=== PATIENT | female | born 1970 | race Caucasian/White ===

== ENCOUNTER 2018-05-10 07:00 | Observation (INO) | payer OTHER ==
[~2018-05-10] VITALS: Ht 154.9 cm; Wt 73.0 kg
[2018-06-01 16:30] VITALS: Ht 154.9 cm; Wt 73.0 kg
[2018-06-02] VITALS (26 sets, daily range): BP systolic 108–137; BP diastolic 55–71; PULSE 80–113; RESP 10–20
[2018-06-02] MEDS ORDERED: LACTATED RINGER'S 1,000 ML IV* SCH (06:00)
[2018-06-02] MEDS ORDERED: CEFAZOLIN 2 GM/50 ML (PMX) 50 ML IVPB SCH (06:00)
--- NOTE | 2018-06-02 06:39 | HPN ---
Date/Time of Note Date/Time of Note DATE: 06/02/18 TIME: 06:38 Interval H&P Admission Note Pt. seen H&P reviewed: No system changes DANYEL HOOKER MD Jun 02, 2018 06:39
--- NOTE | 2018-06-02 06:43 | PREAC ---
Date/Time of Note Date/Time of Note DATE: 06/02/18 TIME: 06:41 Anesthesia Eval and Record Evaluation Time Pre-Procedure Interview DATE: 06/02/18 TIME: 06:41 Age 47 Sex female NPO: 8 hrs Preoperative diagnosis lumbar stenosis Planned procedure L3-L4 laminectomy and decompression, discectomy Past Medical History Past Medical History: Includes Endo: Diabetes (pre diabetes) Surgery & Anesthesia Issues No known issue Meds Anticoagulation: No Beta Daxa within 24 hr: No Reason Beta Daxa not given: Pt. not on B-Daxa Current Medications Cefazolin Sodium/ Dextrose 50 ml @ 100 mls/hr PREOP IVPB Last administered on 06/02/18at 06:30; Admin Dose 100 MLS/HR; Start 06/02/18 at 06:00; Stop 06/02/18 at 17:00 Lactated Ringer's 1,000 ml @ 20 mls/hr Q24H IV* ; Start 06/02/18 at 06:00; Stop 06/02/18 at 17:00 Meds reviewed: Yes Allergies Coded Allergies: amoxicillin (Verified Allergy, Intermediate, VOMITING, 06/01/18) Allergies Reviewed: Yes Labs/Studies Labs Reviewed: Reviewed by anesthesiologist Blood Bank Test 06/01/18 11:45 Antibody Screen NEGATIVE Blood Product Summary Counts Blood Type O POSITIVE test: Negative Pre-procedure Exam Last vitals Vital Signs Date Temp Pulse Resp B/P (MAP) Pulse Ox O2 O2 Flow FiO2 Time Delivery Rate 06/02/18 98.1 80 17 126/57 100 Room Air 06:27 (80) Airway: Adequate mouth opening, Adequate thyromental dist Mallampati: Mallampati I Teeth: Normal Lung: Normal Heart: Normal ASA Physical Status ASA physical status: 2 Emergency: None Planned Anesthetic General/MAC: ETT Planned Pain Management Parenteral pain med Pre-operative Attestations Prior to commencing anesthesia and surgery, the patient was re-evaluated, there was verification of: *The patient's identity *The results of appropriate recent lab work and preoperative vital signs *The above evaluation not changing prior to induction *Anesthetic plan, risk benefits, alternative and complications discussed with patient/family; questions answered; patient/family understands, accepts and wishes to proceed. JUANA TOLEDO Jun 02, 2018 06:43
[2018-06-02] MEDS ORDERED: PROPOFOL 20 ML ONE (06:49)
[2018-06-02] MEDS ORDERED: DESFLURANE 15 MIN ONE (07:00)
[2018-06-02] MEDS ORDERED: LIDOCAINE 2% (SDV) 5 ML INJ ONE (07:00)
[2018-06-02] MEDS ORDERED: ROCURONIUM 50 MG INJ ONE (07:02)
[2018-06-02] MEDS ORDERED: GELATIN SIZE 100 SPONGE ONE (07:05)
[2018-06-02] MEDS ORDERED: THROMBIN 5000 UNIT VIAL ONE (07:06)
[2018-06-02] MEDS ORDERED: BUPIVACAINE 0.25% (MPF) 30 ML INJ ONE (07:06)
[2018-06-02] MEDS ORDERED: morphine 10 MG INJ ONE (07:21)
[2018-06-02] MEDS ORDERED: DEXAMETHASONE 4 MG/ML 5 ML INJ ONE (07:25)
[2018-06-02] MEDS ORDERED: ONDANSETRON 4 MG INJ ONE (07:25)
[2018-06-02] MEDS ORDERED: POLYMYXIN/BACITRACIN 1L IRRIG IRR ONE (08:03)
[2018-06-02] MEDS ORDERED: SUGAMMADEX SODIUM 200 MG/2 ML VIAL IV ONE (08:46)
--- NOTE | 2018-06-02 09:03 | PAC ---
Date/Time of Note Date/Time of Note DATE: 06/02/18 TIME: 09:02 Post-Anesthesia Notes Post-Anesthesia Note Last documented vital signs Vital Signs Date Temp Pulse Resp B/P (MAP) Pulse Ox O2 O2 Flow FiO2 Time Delivery Rate 06/02/18 98.1 80 17 126/57 100 Room Air 0902 (80) Activity: WNL Respiratory function: WNL Cardiovascular function: WNL Mental status: Baseline Pain reasonably controlled: Yes Hydration appropriate: Yes Nausea/Vomiting absent: Yes JUANA TOLEDO Jun 02, 2018 09:02
[2018-06-02] MEDS ORDERED: HYDROmorphONE 1 MG/5 ML IV SYRINGE IV ONE (09:10)
[2018-06-02] MEDS ORDERED: FENTAnyl 50 MCG/ML VIAL ONE (09:11)
--- NOTE | 2018-06-02 09:18 | SIPON ---
Date/Time of Note Date/Time of Note DATE: 06/02/18 TIME: 09:16 Operative Report Preoperative Diagnosis Herniated disc L3-4 bilaterally with spinal stenosis Postoperative Diagnosis Same Operation/Procedure Performed Central decompressive laminectomy at L3 Microdiscectomy L3-4 bilaterally Medial facetectomy and foraminotomy L3-4 bilaterally Cosmetic wound closure (4 cm) Lateral localizing lumbar radiographs (2) Intraoperative nerve monitoring (2.5 hours) Surgeon see signature line assistant accounting manager Dhara JUDGEA Anesthesia: general Estimated blood loss: 50 - 100 ml's Transfusion Required none Specimen Spinous process of L3 Disc material L3-4 Grafts/Implants none Complications none DANYEL HOOKER MD Jun 02, 2018 09:18
[2018-06-02] MEDS ORDERED: hydrALAzine 20 MG INJ IV PRN (09:30)
[2018-06-02] MEDS ORDERED: FENTAnyl 50 MCG/ML VIAL IV PRN ×3 (09:30)
[2018-06-02] MEDS ORDERED: METOCLOPRAMIDE 10 MG INJ IV PRN (09:30)
[2018-06-02] MEDS ORDERED: ALBUTEROL 0.083% (NEB) 2.5 MG/3 ML AMP HHN PRN (09:30)
[2018-06-02] MEDS ORDERED: MEPERIDINE 25 MG INJ IV PRN (09:30)
[2018-06-02] MEDS ORDERED: ONDANSETRON 4 MG INJ IV PRN ×2 (09:30)
[2018-06-02] MEDS ORDERED: OXYCODONE/ACETAMINOPHEN (5/325) TAB PO PRN ×4 (09:30)
[2018-06-02] MEDS ORDERED: HYDROmorphONE 1 MG/5 ML IV SYRINGE IV PRN ×3 (09:30)
[2018-06-02] MEDS ORDERED: DIPHENHYDRAMINE 50 MG INJ IV PRN (09:30)
[2018-06-02] MEDS ORDERED: EPHEDrine SULFATE 50 MG/5 ML SYG IV PRN (09:30)
[2018-06-02] MEDS ORDERED: KETOROLAC 30 MG INJ IV PRN (09:30)
[2018-06-02] MEDS ORDERED: LABETALOL HCL 20MG INJ IV PRN (09:30)
--- NOTE | 2018-06-02 10:46 | OPR ---
DATE OF OPERATION: 06/02/2018 PREOPERATIVE DIAGNOSES: 1. Herniated disk L3-L4 bilaterally. 2. Lumbar spinal stenosis at L3. POSTOPERATIVE DIAGNOSES: 1. Herniated disk L3-L4 bilaterally. 2. Lumbar spinal stenosis at L3. OPERATION PERFORMED: 1. Central decompressive laminectomy at L3. 2. Microdiskectomy L3-L4 bilaterally. 3. Medial facetectomy and foraminotomy L3-L4 bilaterally. 4. Cosmetic wound closure (4 cm). 5. Lateral localized lumbar radiographs (2). 6. Intraoperative nerve monitoring (2-1/2 hours). SURGEON: Sukumar Peters MD ACCESS SPEC: SHANNAN Hahn ANESTHESIA: General endotracheal. ANESTHESIOLOGIST: Dr. Carrillo ESTIMATED BLOOD LOSS: 75 mL, none replaced. DRAINS: No drains employed. COMPLICATIONS: None. PERTINENT HISTORY AND PHYSICAL: This is a 47-year-old female who sustained an injury to her back in the course of her employment on 06/30/2016. She has had extensive care since that time, has remained symptomatic with low back and bilateral leg pain, right greater than left, which have been unrelieve d by conservative management. She has undergone a number of diagnostic studies including an MRI of t he lumbar spine, which demonstrated a mild to moderate central stenosis at L3 and a bilateral herniat ion, worse on the left than the right. Treatment options were discussed with the patient, she electe d to proceed with surgery. OPERATIVE FINDINGS AT SURGERY: A moderate central stenosis at L3, bilateral herniation of the L3-4 d isk was confirmed. The baseline intraoperative nerve monitoring revealed a decrease in the L3 potent ials bilaterally of 30% and the L4 potentials bilaterally of 40%. These all returned to normal at th e completion of surgery. OPERATIVE PROCEDURE: With the patient in supine position after satisfactory induction of general end otracheal anesthesia by Dr. Carrillo, the patient was turned to the prone kneeling position over the [facility] frame. All pressure points were carefully padded. Back was prepped and draped in usual sterile fashion. Athrombic pumps were applied to the legs below the knees to prevent venous stasis during a nd after procedure. An indwelling Shen catheter was also placed preoperative to facilitate bladder drainage during the procedure. Two spinal needles placed next to what was felt to be the L3 and L4 s pinous processes, lateral radiograms taken to confirm anatomic localization. A 4 cm incision then ca rried midline over the spinous process of L3 after skin was infiltrated with 0.25% Marcaine without e pinephrine for postoperative analgesia. Superficial retractors were placed and hemostasis secured wi th electrocautery. Throughout the procedure, copious amounts of antibacterial irrigating solution us ed to periodically irrigate the wound. The fascia was incised in midline with a hot knife and a bila teral subperiosteal dissection carried out at L3. Deep retractors were placed and deep hemostasis se cured with electrocautery. A second intraoperative radiograph was taken with a Tony clamp placed i n what was felt to be the spinous process of L3 and this was confirmed with second x-ray. A central decompressive laminectomy at L3 was then carried out using a Maddison right-angle bone rongeur, Leagustinel l rongeur, Kerrison punches and curettes. Ligamentum flavum was excised with sharp dissection. The operating microscope was then moved into place. A medial facetectomy and foraminotomy was accomplish ed using small hand osteotome, mallet, Kerrison punches and curettes at L3-4 bilaterally. Attention was then turned to the L3-4 disk on the left where the L4 nerve root was mobilized medially and prote cted with D'Errico nerve retractor using microdissection technique. This revealed a herniation of th e L3-4 disk extending out into the foramen. A 15 blade knife used to cut a rectangular window in the annulus and posterior longitudinal ligament and multiple degenerative disk fragments were harvested with pituitary rongeurs and sent to laboratory for pathologic study. Additional fragments were harve sted using Connie curettes. The epidural hemostasis was secured with bipolar electrocautery on low setting. Attention was then turned to the L3-4 disk on the right where the L4 nerve root on the right was mobi lized medially and protected with D'Errico nerve retractor using microdissection technique. This rev ealed a herniation of the L3-4 disk (small). The 15 blade knife used to cut a rectangular window in the annulus and posterior longitudinal ligament and multiple degenerative disk fragments were harvest ed with pituitary rongeurs and sent to laboratory for pathologic study. Additional fragments were ag ain harvested using Connie curettes. A thorough search of the floor of the canal was made with an a rthroscopic probe. No additional fragments were encountered. The epidural hemostasis was secured wi th bipolar electrocautery on a low setting. Anesthesiologist then asked to perform a Valsalva maneuv er at 40 mmHg. No spinal fluid leak was noted. The wound was then closed in layers using #1 Strataf ix sutures in deep paralumbar musculature and deep fascia of back, 2-0 Vicryl suture in subcu tissue, a 2-0 Stratafix suture in subcutaneous tissue as well, 4-0 Vicryl subcuticular cosmetic closing sutu re on the skin. Dermabond and sterile compressive dressings were applied. The patient having tolera alex procedure well and was then turned to the supine position onto her bed and extubated by Dr. Carrillo. She was transported to the recovery room in satisfactory condition. At the conclusion of procedure , sponge, instrument, and needle counts were all correct. NEED FOR SURGICAL DENTAL ASSISTANT: During this spinal surgical procedure, my licensed nursing assistant was used to retract and protect the spinal nerves and dural sac. My licensed nursing assistant also employed the suction catheters to chantal chace blood from the surgical field to improve visualization of the neural structures. The licensed nursing assistant was medically necessary to facilitate the completion of the surgery in a safe and expeditious manner. State of [place] regulations, as well as hospital bylaws, preclude the use of non-licensed health care personnel such as operating room technicians, to perform these functions. Throughout the procedure, neural monitoring was carried out by KIHEITAI including EMG, SSEP a nd MEP monitoring of the L3, L4, L5 and S1 nerve roots bilaterally along with spinal cord potentials. These were interpreted in real time by Dr. Zechariah Hoffman. Dictated By: SUKUMAR PETERS MD TM/CARIN Conf#: [id number] DID#: [id number] CC: SUKUMAR PETERS MD; JAYANT HAYS DO;*End*
--- NOTE | 2018-06-02 11:06 | PN ---
Date/Time of Note Date/Time of Note DATE: 06/02/18 TIME: 10:49 Assessment/Plan VTE Prophylaxis Risk score (from Nsg)>0 risk: 6 SCD applied (from Nsg): Yes SCD contraindicated: low risk/ambulating Pharmacological prophylaxis: NA/contraindicated Pharm contraindication: surgical contra Lines/Catheters IV Catheter Type (from Nrsg): Saline Lock Assessment/Plan Hospital Course Ms. Tai is a pleasant 47-year-old female status post uneventful L3-L4 microdiscectomy and L3-L4 decompressive laminectomy today. Assessment/Plan The patient appears stable and is in no apparent distress while in the postop recovery room. Vital signs are normal and she is hemodynamically stable. She no longer reports nausea. Reported pain level still 7/10 but tolerable on p.o. pain medications. Will attempt ambulation with help of PT later on today. If patient is able to ambulate successfully she will be cleared for discharge with outpatient follow-up. May continue outpatient medications as needed. Discharge as per Dr. Peters/surgical team. Subjective 24 Hr Interval Summary Free Text/Dictation Ms. Tai is a pleasant 47-year-old female with past medical history significant only for migraine headaches, usually controlled on sumatriptan. She is status post L3-L4 decompressive laminectomy and L3-L4 microdiscectomy earlier this morning performed by orthopedic billing specialist Dr. Peters. She has had an uneventful procedure and is currently in bed in the recovery room. She reported 10 out of 10 pain to the supervising nurse and was administered Dilaudid and Percocet which made her nauseous, but she did not vomit. She is alert and awake but appears slightly groggy. Currently, she reports no pain at rest while laying in the hospital bed, but with movement or deep inspiration she reports a 7 out of 10 pain at the surgical site only. She denies radiating pain or any significant or associated numbness or tingling in her lower extremities. She denies headache, dizziness, chest pain, shortness of breath, palpitations or abdominal pain. She has no other complaints. The patient is reported to have had minimal bleeding during the surgery and is scheduled for possible discharge later on today with outpatient follow-up with the orthopedist, Dr. Peters. Constitutional: no complaints, improved; No chills, No disoriented Eyes: no complaints ENT: no complaints Respiratory: no complaints Cardiovascular: no complaints Gastrointestinal: no complaints Genitourinary: no complaints Musculoskeletal: back pain (At the surgical site) Skin: no complaints Neurologic: no complaints; No confusion, No dizziness, No focal-weakness, No headache Endocrine: no complaints Lymphatic: no complaints Psychological: no complaints, nl mood/affect; No anxiety, No confusion Immunologic: no complaints Exam/Review of Systems Vital Signs Vitals Vital Signs Date Temp Pulse Resp B/P (MAP) Pulse Ox O2 O2 Flow FiO2 Time Delivery Rate 06/02/18 Nasal 3.0 09:31 Cannula 06/02/18 102 15 128/62 98 09:18 (84) 06/02/18 98.0 09:03 Exam Constitutional: alert, oriented, well developed; No distress Psych: no complaints, nl mood/affect; No confusion Head: normocephalic, atraumatic Eyes: nl conjunctiva, EOMI, nl lids, nl sclera, PERRL; No icteric ENMT: nl external ears & nose, nl lips & teeth, nl nasal mucosa & septum, mucosa pink and moist Neck: supple, non-tender Respiratory: clear to auscultation, normal air movement; No congested cough, No crackles/rales, No labored breathing, No wheezing Cardiovascular: regular rate and rhythm, nl pulses; No murmurs/extra sounds Gastrointestinal: soft, nl liver, spleen, non-tender, bowel sounds Musculoskeletal: nl extremities to inspection, muscle tone; No muscle weakness, No spine non-tender (Pain and tenderness reported at the lumbar surgical site), No swelling Extremities: normal pulses; No calf tenderness, No edema, No tenderness Neurological: DRAF[employer] II-XII intact, nl mental status, nl speech, nl strength; No confused, No focal weakness, No numbness Skin: nl turgor; No rash or lesions Medications Medications Current Medications Cefazolin Sodium/ Dextrose 50 ml @ 100 mls/hr PREOP IVPB Last administered on 06/02/18at 06:30; Admin Dose 100 MLS/HR; Start 06/02/18 at 06:00; Stop 06/02/18 at 17:00 Lactated Ringer's 1,000 ml @ 20 mls/hr Q24H IV* ; Start 06/02/18 at 06:00; Stop 06/02/18 at 17:00 Hydromorphone HCl (Dilaudid) 0.2 mg PACU PRN IV MILD PAIN LEVEL 1-3; Start 06/02/18 at 09:30; Stop 06/02/18 at 14:00 Hydromorphone HCl (Dilaudid) 0.4 mg PACU PRN IV MODERATE PAIN LEVEL 4-6 Last administered on 06/02/18at 09:49; Admin Dose 0.4 MG; Start 06/02/18 at 09:30; Stop 06/02/18 at 14:00 Hydromorphone HCl (Dilaudid) 0.6 mg PACU PRN IV SEVERE PAIN LEVEL 7-10; Start 06/02/18 at 09:30; Stop 06/02/18 at 14:00 Fentanyl (Sublimaze) 25 mcg PACU ORDER PRN IV MILD PAIN LEVEL 1-3 Last administered on 06/02/18at 09:48; Admin Dose 25 MCG; Start 06/02/18 at 09:30; Stop 06/02/18 at 14:00 Fentanyl (Sublimaze) 50 mcg PACU ORDER PRN IV MODERATE PAIN LEVEL 4-6; Start 06/02/18 at 09:30; Stop 06/02/18 at 14:00 Fentanyl (Sublimaze) 75 mcg PACU ORDER PRN IV SEVERE PAIN LEVEL 7-10; Start 06/02/18 at 09:30; Stop 06/02/18 at 14:00 Ketorolac Tromethamine (Toradol) 30 mg PACU ORDER PRN IV PAIN; Start 06/02/18 at 09:30; Stop 06/02/18 at 14:00 Oxycodone/ Acetaminophen (Percocet (5/ 325)) 1 tab PACU ORDER PRN PO PAIN LEVEL 1-5 Last administered on 06/02/18at 09:57; Admin Dose 1 TAB; Start 06/02/18 at 09:30; Stop 06/02/18 at 14:00 Oxycodone/ Acetaminophen (Percocet (5/ 325)) 2 tab PACU ORDER PRN PO PAIN LEVEL 6-10; Start 06/02/18 at 09:30; Stop 06/02/18 at 14:00 Ondansetron HCl (Zofran Inj) 4 mg PACU ORDER PRN IV NAUSEA AND/OR VOMITING Last administered on 06/02/18at 09:57; Admin Dose 4 MG; Start 06/02/18 at 09:30; Stop 06/02/18 at 14:00 Metoclopramide HCl (Reglan) 10 mg PACU ORDER PRN IV NAUSEA AND/OR VOMITING; Start 06/02/18 at 09:30; Stop 06/02/18 at 14:00 Labetalol HCl (Labetalol) 5 mg PACU ORDER PRN IV ELEVATED BLOOD PRESSURE; Start 06/02/18 at 09:30; Stop 06/02/18 at 14:00 Hydralazine HCl (Apresoline) 5 mg PACU ORDER PRN IV ELEVATED BLOOD PRESSURE; Start 06/02/18 at 09:30; Stop 06/02/18 at 14:00 Ephedrine Sulfate 5 mg PACU ORDER PRN IV BLOOD PRESSURE SUPPORT; Start 06/02/18 at 09:30; Stop 06/02/18 at 14:00 Albuterol (Proventil 0.083% (Neb)) 2.5 mg PACU ORDER PRN HHN WHEEZING; Start 06/02/18 at 09:30; Stop 06/02/18 at 14:00 Meperidine HCl (Demerol) 25 mg PACU ORDER PRN IV POST OPERATIVE SHIVERING; Start 06/02/18 at 09:30; Stop 06/02/18 at 14:00 Diphenhydramine HCl (Benadryl) 25 mg PACU ORDER PRN IV PRURITUS; Start 06/02/18 at 09:30; Stop 06/02/18 at 14:00 Ondansetron HCl (Zofran Inj) 4 mg Q4H PRN IV NAUSEA; Start 06/02/18 at 09:30; Stop 06/02/18 at 14:00 Oxycodone/ Acetaminophen (Percocet (5/ 325)) 1 tab Q4H PRN PO PAIN LEVEL 1-3; Start 06/02/18 at 09:30 Oxycodone/ Acetaminophen (Percocet (5/ 325)) 2 tab Q4H PRN PO PAIN LEVEL 4-6; Start 06/02/18 at 09:30 PATRICIA FARIAS Jun 02, 2018 10:59
[2018-06-02] MEDS ORDERED: HYDROCODONE/APAP (5/325) TAB PO PRN (17:00)
[2018-06-02] MEDS ORDERED: ZOLPIDEM 5 MG TAB PO PRN (17:00)
[2018-06-02] MEDS: HYDROCODONE/APAP (5/325) TAB PO PRN (17:36)
[2018-06-02] MEDS: CEFAZOLIN 1 GM/50 ML (PMX) 50 ML IVPB SCH (18:55)
[2018-06-03] MEDS: HYDROCODONE/APAP (5/325) TAB PO PRN ×2 (01:00→07:25)
[2018-06-03] MEDS: CEFAZOLIN 1 GM/50 ML (PMX) 50 ML IVPB SCH ×2 (01:05→05:22)
[2018-06-03 01:40] VITALS: BP 114/63; PULSE 92; RESP 18
--- NOTE | 2018-06-03 07:12 | PN ---
Date/Time of Note Date/Time of Note DATE: 06/03/18 TIME: 07:10 Assessment/Plan Lines/Catheters IV Catheter Type (from Nrs): Peripheral IV Shen in Place (from Nrsg): No Subjective 24 Hr Interval Summary The patient is postop day #1 following a decompressive laminectomy at L3 with microdiscectomy L3-4 bilaterally. She is resting comfortably in bed. He was too uncomfortable to go home yesterday afternoon, even though she was cleared by physical therapy. She is afebrile. Neurovascular structures are intact distally. She has been given strict discharge precautions and instructions as well as follow-up arrangements. Wound is clean and dry and was redressed. Exam/Review of Systems Vital Signs Vitals Vital Signs Date Temp Pulse Resp B/P (MAP) Pulse Ox O2 O2 Flow FiO2 Time Delivery Rate 06/03/18 98.2 92 18 114/63 97 01:40 (80) 06/02/18 Room Air 10:33 06/02/18 3.0 09:31 Intake and Output 06/02/18 06/02/18 06/03/18 1515:00 23:00 07:00 IntakeIntake Total 1400 ml 250 ml 100 ml OutputOutput Total 245 ml BalanceBalance 1155 ml 250 ml 100 ml DANYEL HOOKER MD Jun 03, 2018 07:11
[2018-06-03 07:31] VITALS: BP 117/59; PULSE 79; RESP 18
== END 2018-06-03 09:52 | disposition home or self-care (01) ==
LOC: INTOOBSV 06-02 05:52 → REC 06-02 05:52 → EDSTATUS 06-02 07:00 → MS1 06-02 17:26
PROVIDERS: ADMIT Orthopaedic Surgery; ATTEND Orthopaedic Surgery
DX: M51.26 Other intervertebral disc displacement, lumbar region (principal); M48.061 Spinal stenosis, lumbar region without neurogenic claudication
CPT/HCPCS: 63030; 72020; 86850; 86900; 86901; 86920; 88304; 88311; 97161; 99217; G0378; J0690; J1100; J1170; J2270; J2405; J3010; J7120